=== PATIENT | female | born 1985 | race Caucasian/White ===

== ENCOUNTER 2023-02-11 21:31 | Emergency (ER) | payer MEDICAID ==
[~2023-02-11] VITALS: Ht 152.4 cm; Wt 65.8 kg
[2023-02-11 21:42] VITALS: BP 131/79
--- NOTE | 2023-02-11 21:46 | ED Lower Extremity ---
General Stated Complaint: FALL/LEFT FOOT INJURY History of Present Illness Date Seen by Provider: Feb 11, 2023 Time Seen by Provider: 21:46 Initial Comments 37-year-old female presents with left ankle and foot injury. Patient reports that happened yesterday when she stepped on it can slipped and fell. Patient was seen at the [facility] ER yesterday and had x-rays and was told there were negative. He reports that she continues to have pain and is more swollen today so wants it reevaluated. Allergies and Home Medications Allergies Coded Allergies: No Known Drug Allergies (Unverified , 02/11/23) Patient Home Medication List Home Medication List Reviewed: Yes Review of Systems Constitutional: no symptoms reported EENTM: no symptoms reported Respiratory: no symptoms reported Cardiovascular: no symptoms reported Musculoskeletal: see HPI Skin: no symptoms reported Psychiatric/Neurological: No Symptoms Reported Physical Exam Vital Signs Vital Signs - First Documented 02/11/23 21:42 Pulse 87 Resp 16 B/P (MAP) 131/79 (96) Pulse Ox 100 O2 Delivery Room Air Capillary Refill : Height, Weight, BMI Height: '" Weight: lbs. oz. kg; BMI Method: General Appearance: WD/WN, no apparent distress Cardiovascular: normal peripheral pulses, regular rate, rhythm Respiratory: lungs clear, normal breath sounds Hips: bilateral hip non-tender Legs: bilateral leg non-tender Knees: bilateral knee non-tender Ankles: left ankle soft tissue tenderness Feet: left foot soft tissue tenderness Neurologic/Psychiatric: alert, normal mood/affect, oriented x 3 Progress/Results/Core Measures Results/Orders My Orders Orders - GUILLAUME,PASCUAL L DO Foot, Left, 3 Views (02/11/23 21:46) Ankle, Left, 3 Views (02/11/23 21:46) Ketorolac Injection (Toradol Injection) (02/11/23 22:27) Vital Signs/I&O 02/11/23 21:42 Pulse 87 Resp 16 B/P (MAP) 131/79 (96) Pulse Ox 100 O2 Delivery Room Air Progress Progress Note : Progress Note Patient's foot and ankle x-ray were ordered reviewed with initial interpretation negative by me with final interpretation per radiology report. Patient was seen at [facility] yesterday with negative x-rays. They were given an ankle sti rrup brace but she is not currently wearing. I did recommend they wear that. Patient was also given a prescription for ibuprofen which she can continue to use along with topical medications. She should follow-up with child and family services specialist or her primary care provider in 7 to 10 days if symptoms or not improving or worsen. She is stable and discharged home Departure Impression Primary Impression: Sprain or strain of foot Additional Impression: Sprain and strain of ankle Disposition: 01 HOME, SELF-CARE Condition: Stable Departure-Patient Inst. Referrals: NO,LOCAL PHYSICIAN (PCP/Family) Primary Care Physician Patient Instructions: Ankle Sprain (DC), Sprain (DC) Add. Discharge Instructions: Elevate foot and ankle when not ambulating. You may use warm moist heat 10 to 15 minutes at a time 3-4 times daily or ice 10 to 15 minutes at a time 3-4 times daily which ever helps with discomfort. Please use already prescribed ankle brace and ibuprofen from [facility]. Follow-up with your primary care provider in 7 to 10 days if symptoms are not improving for further management. You may also try Mario Alberto wrap for comfort. PASCUAL GUILLAUME DO Feb 11, 2023 21:46
[2023-02-11] MEDS: KETOROLAC 30 MG/ML VIAL IM STA (22:46)
--- NOTE | 2023-02-12 07:34 | Diagnostic Imaging Report ---
INDICATION: Foot and ankle pain after injury EXAMINATION: Left ankle 02/11/2023 FINDINGS: 3 views of the ankle. There is diffuse soft tissue swelling about the ankle. Question small avulsion fracture fragment noted adjacent to the medial malleolus. Ankle mortise intact. IMPRESSION: 1. Likely avulsion fracture from the medial malleolus with surrounding soft tissue swelling. Dictated by: Dictated on workstation # [id number]
--- NOTE | 2023-02-12 07:44 | Diagnostic Imaging Report ---
INDICATION: Foot and ankle pain after injury EXAMINATION: Left foot 02/11/2023 3 views of the foot FINDINGS: There is no evidence for an acute fracture or dislocation. The joint spaces are well maintained. There is no significant soft tissue swelling. IMPRESSION: No acute process. Dictated by: Dictated on workstation # [id number]
== END 2023-02-11 22:46 | disposition home or self-care (01) ==
LOC: ER 21:34
DX: S93.402A Sprain of unspecified ligament of left ankle, initial encounter (principal); S96.912A Strain of unspecified muscle and tendon at ankle and foot level, left foot, initial encounter; W01.0XXA Fall on same level from slipping, tripping and stumbling without subsequent striking against object, initial encounter; X50.1XXA Overexertion from prolonged static or awkward postures, initial encounter
CPT/HCPCS: 73610; 73630